=== PATIENT | female | born 2000 | race Caucasian/White ===

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

== ENCOUNTER 2023-03-02 20:40 | Emergency (ER) | payer BC ==
--- OUTSIDE RECORDS SUMMARY | 2023-03-02 20:44 | XMS REPORT | Continuity of Care Document ---
:2000 Author Organization [facility] t Address [address] [facility] [address] [place] [id number] Care Team Providers Name Role Phone [email or web address] Attending Clinician Unavailable [email or web address] Admitting Clinician Unavailable Problems This patient has no known problems. Allergies, Adverse Reactions, Alerts This patient has no known allergies or adverse reactions. Medications This patient has no known medications. Procedures This patient has no known procedures. Encounters Start End Encounter Admission Attending Care Care Encounter Source Date/Time Date/Time Type Type Clinicians Facility Department ID 2023-02-07 2023-02-07 Outpatient [email or web address] PRIV PRIV [id number] [facility] 00:00:00 00:00:00 [facility] [id number] Medic al Results This patient has no known results.
[2023-03-02] MEDS ORDERED: IBUPROFEN 400 MG TAB ONE (21:31)
[2023-03-02] MEDS ORDERED: IBUPROFEN 200 MG TAB PO ONE (21:31)
[2023-03-02 21:34] LABS: SARS-CoV-2 Antigen Rapid Res Negative (Negative)
--- NOTE | 2023-03-02 21:47 | ER ---
Nurse's Notes [facility] Name: Patrica Ch Age: 22 yrs Sex: Female : 2000 Arrival Date: 03/02/2023 Time: 20:40 Bed 10 Private MD: Diagnosis: Influenza due to other identified influenza virus with other respiratory manifestations Presentation: 03/02 20:50 Chief complaint: Patient states: fever, cough, congestion, and sore throat onset rv Sunday. Coronavirus screen: Vaccine status: Patient reports receiving the 2nd dose of the covid vaccine. Client denies travel out of the [place] in the last 14 days. Ebola Screen: Patient denies travel to an Ebola-affected area in the 21 days before illness onset. No symptoms or risks identified at this time. Initial Sepsis Screen: Does the patient meet any 2 criteria? No. Patient's initial sepsis screen is negative. Does the patient have a suspected source of infection? No. Patient's initial sepsis screen is negative. Risk Assessment: Do you want to hurt yourself or someone else? Patient reports no desire to harm self or others. Onset of symptoms was March 02, 2023. 20:50 Method Of Arrival: Ambulatory rv 20:50 Acuity: ОЛЬГА 4 rv Historical: - Allergies: 20:54 No Known Allergies; rv - Home Meds: 20:54 None [Active]; rv - PMHx: 20:54 None; rv - PSHx: 20:54 None; rv - Immunization history:: Adult Immunizations unknown. - Social history:: Smoking status: Reported history of juuling and/or vaping. - Family history:: not pertinent. - Hospitalizations: : No recent hospitalization is reported. Screenin:21 [facility] ED Fall Risk Assessment (Adult) History of falling in the last 3 months, rv including since admission No falls in past 3 months (0 pts) Score/Fall Risk Level 0 - 2 = Low Risk Oriented to surroundings, Maintained a safe environment, Educated pt \T\ family on fall prevention, incl call for assistance when getting out of bed. Abuse screen: Denies threats or abuse. Denies injuries from another. Nutritional screening: No deficits noted. Tuberculosis screening: No symptoms or risk factors identified. Assessment: 21:21 General: Appears comfortable, Behavior is calm, cooperative. Pain: Complains of pain in rv throat. Neuro: Level of Consciousness is awake, alert, obeys commands, Oriented to person, place, time, situation. Cardiovascular: Capillary refill < 3 seconds Patient's skin is warm and dry. Respiratory: Airway is patent Respiratory effort is even, unlabored, Breath sounds are clear bilaterally. Derm: Skin is intact. Vital Signs: 20:50 BP 122 / 91; Pulse 101; Resp 18 S; Temp 99.9(O); Pulse Ox 96% on R/A; Weight 108.86 kg; rv Height 5 ft. 5 in. ; Pain 7/10; 20:50 Body Mass Index 39.94 (108.86 kg, 165.1 cm) rv 20:50 Pain Scale: Adult rv ED Course: 20:47 Patient arrived in ED. gm2 20:48 Oscar Coronel MD is Attending Physician. rn 20:54 Triage completed. rv 20:54 Arm band placed on Patient placed in an exam room, on a stretcher. rv 21:21 Patient has correct armband on for positive identification. Client placed on continuous rv cardiac and pulse oximetry monitoring. NIBP monitoring applied. 21:21 No provider procedures requiring assistance completed. Patient did not have IV access rv during this emergency room visit. 22:14 John Solares, RN is Primary Nurse. rv Administered Medications: 21:19 Drug: Ibuprofen PO 600 mg PO once Route: PO; rv 22:14 Follow up: Response: No adverse reaction rv 22:14 Drug: Oseltamivir PO 75 mg PO once Route: PO; rv 22:14 Follow up: Response: Medication administered at discharge. rv Medication: 21:21 VIS not applicable for this client. rv Outcome: 21:46 Discharge ordered by . rn 22:14 Discharged to home ambulatory, rv 22:14 Condition: good 22:14 Discharge instructions given to patient, Instructed on discharge instructions, follow up and referral plans. Demonstrated understanding of instructions, follow-up care, 22:14 Patient left the ED. rv Signatures: Oscar Coronel MD MD rn Vicente, Ronaldo, RN RN rv Mitchell, Ginger gm2 Corrections: (The following items were deleted from the chart) 20:54 20:54 PMHx: None; rv rv 20:54 20:54 PMHx: None; rv rv
--- NOTE | 2023-03-02 21:47 | EDPHYS ---
Physician Documentation [facility] Name: Patrica Ch Age: 22 yrs Sex: Female : 2000 Arrival Date: 03/02/2023 Time: 20:40 Bed 10 Private MD: ED Physician Oscar Coronel HPI: 03/02 20:54 This 22 yrs old Female presents to ER via Ambulatory with complaints of Fever, rn Congestion, Cough, Sore Throat. 20:54 The patient reports fever, not measured (subjective). Onset: The symptoms/episode rn began/occurred 2 day(s) ago. Modifying factors: there are no obvious modifying factors. Associated signs and symptoms: Pertinent positives: chills, cough, runny nose, sore throat, Pertinent negatives: abdominal pain, altered mental status, skin rash, shortness of breath. Severity of symptoms: At their worst the symptoms were mild in the emergency department the symptoms are unchanged. The patient has not experienced similar symptoms in the past. The patient has not recently seen a physician. Patient reports subjective fever, congestion, cough, sore throat and raspy voice for 2 days now. 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 Traveling from out of town. Denies shortness of breath. No abdominal issues. Historical: - Allergies: 20:54 No Known Allergies; rv - Home Meds: 20:54 None [Active]; rv - PMHx: 20:54 None; rv - PSHx: 20:54 None; rv - Immunization history:: Adult Immunizations unknown. - Social history:: Smoking status: Reported history of juuling and/or vaping. - Family history:: not pertinent. - Hospitalizations: : No recent hospitalization is reported. 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 Cardiovascular: Tachycardic, regular. No pulse deficits. Respiratory: No increased work of breathing, no retractions or nasal flaring. Neuro: Awake and alert, GCS 15 Vital Signs: 20:50 BP 122 / 91; Pulse 101; Resp 18 S; Temp 99.9(O); Pulse Ox 96% on R/A; Weight 108.86 kg; rv Height 5 ft. 5 in. ; Pain 7/10; 20:50 Body Mass Index 39.94 (108.86 kg, 165.1 cm) rv 20:50 Pain Scale: Adult rv MDM: 20:48 Patient medically screened. rn 21:45 Differential diagnosis: viral Infection, bacterial infection, URI. Data reviewed: vital rn signs, nurses notes, lab test result(s), and as a result, I will discharge patient. Counseling: I had a detailed discussion with the patient and/or guardian regarding the historical points, exam findings, and any diagnostic results supporting the discharge/admit diagnosis, lab results, the need for outpatient follow up, to return to the emergency department if symptoms worsen or persist or if there are any questions or concerns that arise at home. Special discussion: I discussed with the patient/guardian in detail that at this point there is no indication for admission to the hospital. It is understood, however, that if the symptoms persist or worsen the patient needs to return immediately for re-evaluation. 21:45 ED course: I have personally reviewed all of the results, including but not limited to rn blood tests deemed necessary to safely discharge this patient at this time. All results given to and printed out for patient. I personally went over all the results with the patient and answered all questions. Patient will follow-up with PCP and or specialist as discussed. Return precautions given and understood.. 03/02 20:54 Order name: SARS RAPID; Complete Time: 21:40 rn 03/02 20:54 Order name: Flu; Complete Time: 21:40 rn 03/02 20:54 Order name: Strep; Complete Time: 21:40 rn 03/02 21:32 Order name: Throat Culture EDMS Administered Medications: 21:19 Drug: Ibuprofen PO 600 mg PO once Route: PO; rv 22:14 Follow up: Response: No adverse reaction rv 22:14 Drug: Oseltamivir PO 75 mg PO once Route: PO; rv 22:14 Follow up: Response: Medication administered at discharge. rv Disposition Summary: 03/02/23 21:46 Discharge Ordered Notes: Location: Home rn Problem: new rn Symptoms: have improved rn Condition: Stable rn Diagnosis - Influenza due to other identified influenza virus with other respiratory rn manifestations Followup: rn - With: Private Physician - When: As needed - Reason: Recheck today's complaints, Re-evaluation by your physician Discharge Instructions: - Discharge Summary Sheet rn - Influenza, Adult rn Forms: - Medication Reconciliation Form rn - Thank You Letter rn - Antibiotic rn telephone triage - Prescription Opioid Use rn - Patient Portal Instructions rn - Leadership Thank You Letter rn Prescriptions: - ondansetron 4 mg Oral Tablet,disintegrating - take 1 tablet ORAL route every 8 hours As needed; 12 tablet; Refills: 0, rn Product Selection Permitted - Tamiflu 75 mg Oral capsule - take 1 tablet ORAL route every 12 hours for 5 days; 10 tablet; Refills: 0, rn Product Selection Permitted Signatures: Dispatcher [employer] EDMS Oscar Coronel MD MD rn Vicente, Ronaldo, RN RN rv Corrections: (The following items were deleted from the chart) 20:54 20:54 PMHx: None; rv rv 20:54 20:54 PMHx: None; rv rv 20:55 20:55 SARS-COV-2 Antigen Rapid+I.LAB.BRZ ordered. EDMS EDMS 20:55 20:55 Influenza Screen (A \T\ B)+BA.LAB.BRZ ordered. EDMS EDMS 20:55 20:55 Group A Streptococcus Rapid Sc+BA.LAB.BRZ ordered. EDMS EDMS
[2023-03-02] MEDS ORDERED: OSELTAMIVIR 75 MG CAP PO ONE (22:15)
[2023-03-02 22:36] VITALS: BP 122/91; TEMP 99.9; O2SAT 96
== END 2023-03-02 22:14 | disposition home or self-care (01) ==
LOC: ER 20:40
DX: J10.1 Influenza due to other identified influenza virus with other respiratory manifestations (principal); Z11.52 Encounter for screening for COVID-19
CPT/HCPCS: 36415; 87070; 87081; 87804; 87811; 99283